=== PATIENT | male | born 1965 | race Caucasian/White ===

== ENCOUNTER → 2017-03-04 | Day surgery (SDC) | payer BC ==
[~2017-03-04] MED LIST: ACETYLCYSTEINE 20% 6,000 MG/30 ML ORAL SOLN VIAL ONE; LACTATED RINGER'S 1000 ML INJ 1,000 ML ONE; PROPOFOL 200 MG/20 ML AMP IV ONE; STERILE WATER FOR INJ 20 ML VIAL ONE
--- NOTE | 2017-03-04 10:04 | GIPROC ---
[facility] [address] [facility], [address] EGD WITH HALO PROCEDURE REPORT EXAM DATE: 03/04/2017 PATIENT NAME: Marko Renteria MR #: [id number] BIRTHDATE: 1965 ORDER #: [id number] ATTENDING: Nancy Brown MD COMPUTER SYSTEMS ADMINISTRATOR: Bonita Delgado RN STATUS: outpatient INDICATIONS: The patient is a 51 yr old male here for an EGD with HALO90 ablation due to history of Burgess's esophagus PROCEDURE PERFORMED: EGD w/ thermal GERD treatment MEDICATIONS: None and Per Anesthesia. TOPICAL ANESTHETIC: CONSENT: The patient understands the risks and benefits of the procedure and understands that these risks include, but are not limited to: sedation, allergic reaction, infection, perforation and/or bleeding. Alternative means of evaluation and treatment include, among others: physical exam, x-rays, and/or surgical intervention. The patient elects to proceed with this endoscopic procedure. DESCRIPTION OF PROCEDURE: checked for proper function. Hand hygiene and appropriate measures for infection prevention was taken. After the risks, benefits and alternatives of the procedure were thoroughly explained, Informed consent was verified, confirmed and timeout was successfully executed by the treatment team. The EC-2990i ([id number]) endoscope was introduced through the mouth and advanced to the second portion of the duodenum. The mucosa was examined both on insertion and withdrawal. Retroflexion was performed in the gastric fundus. The area of the Burgess's esophagus was mapped. The esophagus was irrigated with 1% N-acetylcysteine (Mucomyst) to clear the mucous layer from the lining of the esophagus and to facilitate energy delivery. The gastroscope was removed and HALO-90 ablation device was attached to the tip of the gastroscope, which was re-introduced into the esophagus under direct visualization. HALO-90 device was directed to the targeted area of Burgess's esophagus. With the targeted area in 12 o' clock position with the endoscopic view, radiofrequency energy was applied twice at the same site (300 W and 12 J/cm2). The ablated zone was scrapped with the tip of the HALO-90 device to remove the coagulative debris. The gastroscope was removed and the HALO-90 device was cleaned. The gastroscope was reintroduced with the HALO-90 device and the targeted areas were treated with radiofrequency energy two more times. (Total of four application in one region). The gastroscope was inserted into the stomach, the gastric contents were suctioned and the ablation zone was inspected. Esophagoscopy confirmed complete ablation of all intestinal metaplasia. Rest of the findings are given below. The patient tolerated the procedure well and was sent to Recovery in stable condition. ESOPHAGUS: There was short segment Burgess's esophagus found in the distal esophagus. The length of circumferential Burgess's was 1cm ([place] C1). There was no nodular mucosa noted in the Burgess's segment. RFA procedure: Given the above findings, the decision was made to treat the Burgess's esophagus with endoscopic ablation, using the Halo 90 cap device. The Burgess's esophagus tissue was irrigated with Mucomyst (1%) mixed with water. The cap ablation device was placed on the endoscope and the esophagus was treated at 12J/cm2. RF ablation of all Burgess's tissue was performed. Each area was treated x 2, the ablation zone was cleaned of coagulative debris with the ablation device, irrigation and suction using the endoscope. The area was then treated x 2 again until a chamois colored area was observed at the site of treatment. A total of 6 ablations were performed. ADVERSE EVENTS: There were no complications. IMPRESSIONS: There was short segment Burgess's esophagus found in the distal esophagus; RF ablation of all Burgess's tissue was performed RECOMMENDATIONS: 1. Anti-reflux regimen 2. Continue PPI 3. Carafate 1 gm po qid ac REPEAT EXAM: Return 3 months EGD with sclerotherapy Nancy Brown MD eSigned: Nancy Brown MD 03/04/2017 10:04 AM cc: Iraj Alcantar M.D. PATIENT NAME: Marko Renteria MR#: [id number]
== END | disposition home or self-care (01) ==
LOC: ESDC 08:26
PROVIDERS: ATTEND Internal Medicine Gastroenterology
DX: K22.70 Barrett's esophagus without dysplasia (principal)
CPT/HCPCS: 00740; 43270; J3010; J7120

== ENCOUNTER → 2017-06-10 | Day surgery (SDC) | payer BC ==
[~2017-06-10] MED LIST changes: +MIDAZOLAM HCL 2 MG/2 ML VIAL ONE; -PROPOFOL 200 MG/20 ML AMP IV ONE; +PROPOFOL 500 MG/50 ML BTL IV ONE
--- NOTE | 2017-06-10 12:50 | GIPROC ---
[facility] [address] [facility], [address] EGD PROCEDURE REPORT EXAM DATE: 06/10/2017 PATIENT NAME: Marko Renteria MR #: [id number] BIRTHDATE: 1965 ATTENDING: Glenny Sevilla MD ORDER #: [id number] MANAGER TEST: Joanna Monroy RN STATUS: outpatient INDICATIONS: The patient is a 51 yr old male here for an EGD due to H/O barretts with previous ablation with hallo PROCEDURE PERFORMED: EGD w/ ablation MEDICATIONS: None and Per Anesthesia. TOPICAL ANESTHETIC: none CONSENT: The patient understands the risks and benefits of the procedure and understands that these risks include, but are not limited to: sedation, allergic reaction, infection, perforation and/or bleeding. Alternative means of evaluation and treatment include, among others: physical exam, x-rays, and/or surgical intervention. The patient elects to proceed with this endoscopic procedure. medical equipment was checked for proper function. Hand hygiene and appropriate measures for infection prevention was taken. After the risks, benefits and alternatives of the procedure were thoroughly explained, Informed consent was verified, confirmed and timeout was successfully executed by the treatment team. The patient was anesthetized with topical anesthesia and the EG-2990i ([id number]) and EC-3490Li ([id number]) endoscope was introduced through the mouth and advanced to the second portion of the duodenum. Retroflexed views revealed no abnormalities The gastroscope was then slowly withdrawn and removed. Irregular Z line with small area (isle of Burgess's) treated with Hallo Ablation 17 application per protocol. The endoscopy was otherwise normal. RFA procedure: Given the above findings, the decision was made to treat the Burgess's esophagus with endoscopic ablation, using the Halo 90 cap device. The Burgess's esophagus tissue was irrigated with Mucomyst (1%) mixed with water. RF ablation of the islands and GE junction was performed. 17. ADVERSE EVENTS: There were no complications. IMPRESSIONS: 1. Irregular Z line with small area (isle of Burgess's) treated with Hallo Ablation 17 application per protocol 2. Normal endoscopy otherwise 3. Retroflexed views revealed no abnormalities RECOMMENDATIONS: 1. Continue PPI 2. Anti-reflux regimen 3. Avoid NSAIDS PATIENT CONDITION: stable DISPOSITION: Home REPEAT EXAM: Return 3 years EGD Glenny Sevilla MD eSigned: Glenny Sevilla MD 06/10/2017 12:50 PM cc: Jacobo Franz M.D.
== END | disposition home or self-care (01) ==
LOC: ESDC 10:53
PROVIDERS: ATTEND Hospitalist
DX: K22.70 Barrett's esophagus without dysplasia (principal); K22.9 Disease of esophagus, unspecified
CPT/HCPCS: 00740; 43270; J2250; J3010; J7120